=== PATIENT | female | born 1975 | race African-American/Black ===

== ENCOUNTER → 2021-11-23 | Outpatient (CLI) | payer OTHER ==
[~2021-11-23] MED LIST: LISI1TAB37 PO
--- NOTE | 2021-11-23 13:24 | EKG ---
[facility] [address] [place] [address] Test Date: 2021-11-23 Test Time: 13:18:34 Pat Name: DILLON HUGHES Department: Room: Gender: F Counter Maker: RADHA : 1975 Requested By: SILVIANO ANGUIANO Order Number: [id number] Reading MD: Layton Hammond MD Measurements Intervals Linch Rate: 76 P: 67 OH: 182 QRS: 68 QRSD: 76 T: 48 QT: 380 QTc: 432 Interpretive Statements SINUS RHYTHM Electronically Signed On 11-26-2021 8:49:05 CDT by Layton Hammond MD
[2021-11-23 13:30] LABS: BASO % 1 % (0-3); EOS # 0.3 x10^3/uL (0.0-0.7); EOS % 4 % (0-3); HEMATOCRIT 40.9 % (36.0-47.0); HEMOGLOBIN 13.9 g/dL (12.0-15.5); LYMPH # 2.9 x10^3/uL (1.0-4.8); LYMPH % 38 % (24-48); MEAN CORPUSCULAR HEMOGLOBIN 33 pg (25-35); MEAN CORPUSCULAR HGB CONC 34 g/dL (31-37); MEAN CORPUSCULAR VOLUME 96 fL (79-100); MONO # 0.6 x10^3/uL (0.0-1.1); MONO % 7 % (0-9); NEUT # 3.7 x10^3/uL (1.8-7.7); NEUT % 50 % (31-73); PLATELET COUNT 283 x10^3/uL (140-400); RED BLOOD COUNT 4.25 x10^6/uL (3.50-5.40); RED CELL DISTRIBUTION WIDTH 13.5 % (11.5-14.5); WHITE BLOOD COUNT 7.5 x10^3/uL (4.0-11.0)
[2021-11-23 13:46] LABS: BACTERIA,URINE FEW /HPF (0-FEW); RBC,URINE 0 /HPF (0-2); WBC,URINE OCC /HPF (0-4)
[2021-11-23 13:55] LABS: ALBUMIN 3.7 g/dL (3.4-5.0); ALBUMIN/GLOBULIN RATIO 0.9 (1.0-1.7); CALCIUM 8.8 mg/dL (8.5-10.1); CREATININE 0.9 mg/dL (0.6-1.0); GFR 82.3; POTASSIUM 3.5 mmol/L (3.5-5.1); TOTAL BILIRUBIN 0.2 mg/dL (0.2-1.0)
--- NOTE | 2021-11-23 15:54 | RAD ---
XR CHEST 2V INDICATION: PRE OP HYSTERECTOMY SCHEDULED 11/28/2021 . COMPARISON STUDY: None. FINDINGS: Lungs: Normal lung volume. No pulmonary mass or consolidation. The tracheobronchial tree and hilar st ructures are normal. Pleura: No pleural effusion or pneumothorax. Heart and Mediastinum: The cardiomediastinal silhouette is normal. The great vessels of the thorax ar e normal. Bones and Soft Tissues: The bones and soft tissues are within normal limits. IMPRESSION: No acute cardiopulmonary process. Electronically signed by: Robert Gregory MD (11/23/2021 3:52 PM) [id number]
== END ==
LOC: SURGPAT 12:46
PROVIDERS: ATTEND Obstetrics & Gynecology
DX: Z01.818 Encounter for other preprocedural examination (principal)
CPT/HCPCS: 36415; 71046; 80053; 81001; 85025; 93005

== ENCOUNTER → 2021-11-26 | Outpatient (CLI) | payer OTHER | LOC: LAB 12:44 | PROVIDERS: ATTEND Obstetrics & Gynecology | DX: Z01.812 Encounter for preprocedural laboratory examination (principal); Z20.822 Contact with and (suspected) exposure to COVID-19 | CPT/HCPCS: U0003 ==

== ENCOUNTER 2021-11-28 05:43 | Observation (INO) | payer OTHER ==
[2021-11-23 13:12] VITALS: BP 168/91
[2021-11-28] VITALS (10 sets, daily range): BP systolic 125–142; BP diastolic 79–90
[~2021-11-28] VITALS: Ht 154.9 cm; Wt 79.8 kg
[2021-11-28] MEDS ORDERED: HYDROmorphone 2 MG/ML INJ. IVP PRN (06:00)
[2021-11-28] MEDS ORDERED: IV RINGERS,LACTATED 1000ML 1,000 ML IV SCH (06:00)
[2021-11-28] MEDS ORDERED: MORPHINE SULFATE 2 MG/ML INJ. IVP PRN (06:00)
[2021-11-28] MEDS ORDERED: PROCHLORPERAZINE 10 MG/2 ML VIAL. IVP PRN (06:00)
[2021-11-28] MEDS ORDERED: fentaNYL PF VIAL 100 MCG/2 ML VIAL IVP PRN (06:00)
[2021-11-28] MEDS ORDERED: MIDAZOLAM HCL/PF 2 MG/2 ML VIAL. ONE (06:45)
[2021-11-28] MEDS ORDERED: PROPOFOL 10 MG/ML (20ML) VIAL. IV ONE (06:45)
[2021-11-28] MEDS ORDERED: SUCCINYLCHOLINE 200 MG/10 ML VIAL. ONE (06:45)
[2021-11-28] MEDS ORDERED: LIDOCAINE 2% PF 5 ML VIAL. ONE (06:45)
[2021-11-28] MEDS ORDERED: HYDROmorphone 2 MG/ML INJ. ONE (06:46)
[2021-11-28] MEDS ORDERED: ROCURONIUM 50 MG/5 ML VIAL. ONE (06:46)
[2021-11-28] MEDS ORDERED: BUPIVACAINE-EPI 0.25% 30 ML VIAL KIT. ONE (07:03)
[2021-11-28] MEDS ORDERED: INDIGOTINDISULFONATE SODIUM 40 MG/5 ML AMPUL. ONE (07:04)
[2021-11-28] MEDS ORDERED: ESTROGENS, CONJ VAGINAL CREAM 30GM TUBE. ONE (07:04)
[2021-11-28] MEDS ORDERED: fentaNYL PF VIAL 100 MCG/2 ML VIAL ONE ×2 (07:59→11:16)
[2021-11-28] MEDS ORDERED: KETAMINE HCL IN NACL, ISO-OSM 50 MG/5 ML SYRINGE ONE (08:14)
[2021-11-28] MEDS ORDERED: ESMOLOL 100 MG/10 ML VIAL. IVP ONE (09:24)
[2021-11-28] MEDS ORDERED: GLYCOPYRROLATE 1 MG/5 ML VIAL. ONE (09:54)
[2021-11-28] MEDS ORDERED: NEOSTIGMINE METHYLSULFATE 5 MG/5 ML SYRINGE. ONE (09:55)
[2021-11-28] MEDS ORDERED: LACTULOSE 20 GM/30 ML SOLUTION. PO PRN (10:45)
[2021-11-28] MEDS ORDERED: 0.9 % SODIUM CHLORIDE 10 ML DISP.SYRIN. IV PRN (10:45)
[2021-11-28] MEDS ORDERED: NALOXONE 0.4 MG/ML VIAL. IV PRN (10:45)
[2021-11-28] MEDS ORDERED: ONDANSETRON PF 4 MG/2 ML VIAL. IV PRN (10:45)
[2021-11-28] MEDS ORDERED: diphenhydrAMINE 50 MG/ML VIAL IV PRN (10:45)
[2021-11-28] MEDS ORDERED: ZOLPIDEM 5 MG TABLET. PO PRN (10:45)
[2021-11-28] MEDS ORDERED: MAGNESIUM HYDROXIDE 2,400 MG/30 ML ORAL.SUSP. PO PRN (10:45)
[2021-11-28] MEDS ORDERED: HYDROcodone/APAP 5/325MG 1 TAB TABLET PO PRN (10:45)
[2021-11-28] MEDS ORDERED: MORPHINE SULFATE 2 MG/ML INJ. IV PRN (10:45)
[2021-11-28] MEDS ORDERED: CALCIUM CARBONATE 500 MG TAB.CHEW PO PRN (10:45)
[2021-11-28] MEDS ORDERED: diphenhydrAMINE HCL 25 MG CAPSULE PO PRN (10:45)
[2021-11-28] MEDS ORDERED: MAG HYDROX/ALUMINUM HYD/SIMETH 30 ML ORAL.SUSP PO PRN (10:45)
--- NOTE | 2021-11-28 10:54 | PDOC4 ---
BRIEF OPERATIVE NOTE Date: November 28, 2021 Pre-Op Diagnosis enlarged fibroid uterus, menorrhagia Post-Op Diagnosis same Procedure Performed LAVH/bilateral salpingectomy/morcellationo of enlarged fibroid uterus Surgeon Dr. Madison Jara Parts Lister SINGH Ferreira Anesthesiologist Dr. Camarillo Anesthesia Type: General Blood Loss 600cc IV Fluid 2L Urine Output 75cc clear and concentrated in kulkarni Specimens Obtained cervix, uterus in pieces and bilateral distal tubes (prior tubal ligation) Findings very enlarged fibroid uterus, evidence of prior tubal and normal bilateral ovaries, no significant adhesive disease Complications none Operative Note [id number] MADISON JARA MD November 28, 2021 10:54
[2021-11-28] MEDS: fentaNYL PF VIAL 100 MCG/2 ML VIAL IVP PRN ×2 (11:20→11:25)
[2021-11-28 11:38] LABS: HEMATOCRIT 35.8 % (36.0-47.0); HEMOGLOBIN 11.8 g/dL (12.0-15.5); RED BLOOD COUNT 3.71 x10^6/uL (3.50-5.40); RED CELL DISTRIBUTION WIDTH 13.2 % (11.5-14.5); WHITE BLOOD COUNT 15.9 x10^3/uL (4.0-11.0)
--- NOTE | 2021-11-28 12:25 | OP ---
DATE OF SURGERY: 11/28/2021 PREOPERATIVE DIAGNOSIS: Enlarged fibroid uterus and menorrhagia. POSTOPERATIVE DIAGNOSIS: Enlarged fibroid uterus and menorrhagia. PROCEDURE: Laparoscopic-assisted vaginal hysterectomy, bilateral salpingectomy and morcellation of enlarged fibroid uterus to get it out vaginally. SURGEON: Madison Jara MD. ASSOCIATE SALES REPRESENTATIVE: SINGH Anna ANESTHESIOLOGIST: Dr. Camarillo. ANESTHESIA: General. BLOOD LOSS: 600 mL. URINE OUTPUT: 75 mL clear and concentrated via Garcia catheter. FLUIDS: 2 liters of crystalloid. SPECIMENS: Cervix, uterus in pieces and bilateral distal tubes with evidence of prior tubal ligation. COMPLICATIONS: None. FINDINGS: She had a very enlarged fibroid uterus two-thirds the way up to the umbilicus. No significant pelvic adhesive disease. Normal bilateral ovaries, normal bilateral distal tubes with evidence of prior tubal ligation. DESCRIPTION OF PROCEDURE: This patient was taken to the operating room where general anesthesia was placed. The patient was placed in dorsal lithotomy position in Josh stirrups. The patient's abdomen and vagina were both prepped and draped in the normal sterile fashion and a Garcia catheter had been inserted under sterile technique. Upon my arrival, a timeout was performed. Once everyone agreed on the patient, the site, the procedure, the antibiotics, the procedure was initiated. Initially, a bivalve speculum was placed in the patient's vagina. A single-tooth tenaculum was used to grasp the anterior lip of the cervix. 10 mL of 0.25% local with epinephrine was used to circumferentially inject around the cervix for both hemodissection and hemostatic purposes later. The Valtchev uterine manipulator was placed through the endocervical os, locked on the single tooth tenaculum and the bivalve speculum was then removed. Top gloves were discarded and changed. Attention was then turned to the abdomen where a supraumbilical skin incision was made. This was 2-3 cm above the umbilicus to give adequate room to get around the uterus to see if we could get the blood supply, it was injected first making a small incision with the scalpel using a curved Taina to dissect through the subcuticular layer to the fascia. The 5 mm Visiport was used to directly enter the abdominal cavity. Opening patient pressure was 4-5 mmHg. Carbon dioxide gas was used to then appropriately insufflate the abdominal cavity to maintain a pressure of 15 mmHg. This was actually turned up to 16, 17 as her opening pressure was already 5-6 to lift that abdominal wall. Once we were in and direct placement was confirmed via the laparoscope, overhead lights were dimmed. The patient was placed in Trendelenburg position. Right and left lower quadrant ports were made. There were no adhesions on the inside after transilluminating the abdominal wall, finding an area clear of any vasculature injecting with 0.25% with making a small incision and placing the 5 mm atraumatic trocars and under direct visualization. A 4 to 5 mL of air was placed in the trocar cuff. Then, the camera was moved laterally to check the supraumbilical port. It was also clear and it was insufflated with the 4 mL of air as well. Camera was moved back to the midline. Both tubes and ovaries were seen. Ureter was clearly seen on the right side, left side it appeared to be right near the vessel, but it was harder to see on this side as it was more narrow on this side and it was also a little bit bloodier on that side like hyperemic, but yes we could lift the tube and ovary. We went just took the distal tubes because the proximal tubes had been taking were already gone. Both tubes were pulled out laparoscopically easy and then we got the round ligaments on both sides, cauterizing and cutting with the LigaSure opening that up, pushing the uterus up and making the bladder flap sharply with the monopolar hook. Once this was done, the uteroovarian pedicles were crossed on both sides, again with the LigaSure, hugging the uterus, staying right on the uterus as these ovaries were right near it and letting them fall out laterally, leaving both ovaries that looked normal. Taking the tubes and leaving both ovaries per patient request so, crossing the utero-ovarian pedicles on both sides. At this point, once the bladder was down, I was able to cross contralaterally and get the uterines on the left side and then get them on the right side as well and then hugging on the right side, staying posterior while pushing the uterus cephalad, staying right on that posterior cervix that we could see clearly and going through the cardinal and broad ligaments to the level of the uterosacral. We got very low on the right side and got the uterines on the left side, but did not go quite as low because that was the narrow side and I did not want to go outside. I stayed inside my pedicles, so I would make sure I did not risk anything on the pelvic wall. So once that bladder was down and we got the uterines on the left side, right side uterines and through the cardinal and broad low, it was decided with no adhesions. Even though it was a large uterus the blood supply was obtained. The tubes were out. The uteroovarian pedicles were done. Rounds were cut. It was decided to go below. So, all instruments were removed from the abdomen and attention was turned vaginally. The single tooth and Valtchev were removed. A weighted speculum was placed in the patient's vagina. Thyroid Sima clamps were placed on the anterior and posterior lips of the cervix respectively. A scalpel was used to make a circumferential incision in the cervix. The posterior cul-de-sac was bulging and it was easily seen and sharply entered. A #0 Vicryl stitch was used to secure the posterior peritoneum here to the vaginal cuff, it was tagged with a curved Taina clamp. The needle was cut and passed off. The short weighted vaginal speculum was removed and it was replaced with the long weighted Stanley speculum in the posterior cul-de-sac. At this point, care was taken to be directed at the bladder flap. The end of the plastic Yankauer suction tip was used to gently push up while pulling back on the cervix and taking the bladder up sharply and bluntly and then using an open Ray-Kennedy 4 x 4 to gently push it off the cervix. Once it was up and out of the way, I was able to get in on one of the sides and took it around. Curved Gustavo clamps x 2 were placed on the patient's left uterosacral ligament where they were doubly clamped with curved Heaneys, cut with curved Berger scissors and suture ligated x 2. Second one was taken through the vaginal cuff, securing uterosacral ligament to the vaginal cuff, tagging it with a straight Taina clamp and cutting and passing the needle off. This was done exactly the same on the patient's right side, double clamping the uterosacrals with curved Gustavo's, cutting with curved Berger scissors and suture ligating x 2 with 0 Vicryl, taking the second one through the vaginal cuff, securing uterosacral ligament to the vaginal cuff, tagging it with a straight Taina clamp and cutting and passing the needle off. At this point, the vaginal LigaSure was used to take a bite on the left side as we were not quite as high cauterizing and cutting, getting higher. The right side was lower. I was able to get the curved right angle clamp around the remaining pedicle delineating it and taking the vaginal LigaSure and cauterizing and cutting it. The entire right side was free, taking it around and getting the remaining pedicle on the left side. Once it was free and I could get my finger all the way around and it was starting to pull out vaginally, but there was still a large uterus above. The single tooth and double tooth tenaculums were placed on the posterior cervix and then a scalpel was used to start morcellating the uterus. The cervix was taken off and large chunks were cored out of the middle of the uterus and then pulling it down the sides where we could visually see opening it up and going through the middle under direct visualization pulling out large pieces until it decompressed and the remainder pulled out. Greater than 15 cm of chunks were taken out under direct visualization. Once that was done, clots and debris were cleared out from the cul-de-sac. A sponge stick was used to examine the pedicles. The pedicles appeared to be hemostatic. The long Stanley speculum was removed and replaced with the short weighted vaginal speculum and I was able to grasp the anterior bladder peritoneum with a long Allis, 2-0 Vicryl was taken through the anterior bladder peritoneum, left uterosacral ligament, posterior peritoneum and right uterosacral ligament, thus closing the peritoneum in a pursestring like fashion. Once this was done, both the right and left uterosacral tags were clipped. The cuff was closed in an anterior to posterior running locked fashion and tied to the posterior cuff tag. An imbricating stitch was placed for hemostasis and just making sure it was secure. A sponge stick was used to examine the vaginal cuff and it was completely hemostatic, so at this point, all gloves were discarded and changed. All counts had been correct x 2 by OR personnel below and look was taken from above. The patient was placed back in Trendelenburg, overhead lights were redimmed. Copious irrigation revealed hemostasis. Clots and debris were taken out before irrigating. Right and left pericolic gutters were clear. All the clots were suctioned out easily. The irrigation was returning clear. Tisseel was placed over the cuff. Both ovaries were normal. So at this point, the 4-5 mL of air was taken out of all three trocar cuffs. It remained hemostatic. The right and left lower quadrant ports were removed under direct visualization. Gas was released from that supraumbilical port. Once the gas was out it was also removed. All 3 port sites were closed with 4-0 nylon at the skin. The catheter was removed . The patient was awakened from anesthesia and has been brought to recovery room in stable condition. CECILY/KANA DR: Jimbo TID: [id number]
[2021-11-28] MEDS: oxyCODONE/APAP 5/325 1 TAB TABLET PO PRN ×2 (15:48→19:36)
--- NOTE | 2021-11-28 16:03 | NUR ---
1210 Patient arrived room 341 at this time via bed accompanied by RN's x2. Patient slept during transfer from PACU. 1220 Assessment completed, patient wakes up when name called. Patient asks about type of incision done in OR. Patient denies pain and back to sleep. LS clear BS hypo active. IV site to right hand C/D/I with no redness, infusing LR @125 ml Hr. Lap sites x3 D/I with slight shadowing to right incision. Son at bedside. 1400 Patient continues to sleep, awakes when name called. Denies needs at this time, Son remains at bedside. Up to BR voided 100 yellow urine. 1500 RN called to room, Incision to right lateral bleeding. Drsg saturated. Pressure applied, dressing applied and secured with tape. Patient states Lying on right side when bleeding started. Gown and underpad changed. 1548 Percocet 2 tabs given for c/o pain rating 7. Family member at bedside.
[2021-11-29] MEDS: oxyCODONE/APAP 5/325 1 TAB TABLET PO PRN ×2 (03:10→07:57)
[2021-11-29] MEDS: SIMETHICONE 80 MG TAB.CHEW PO PRN ×2 (03:21→07:56)
[2021-11-29 03:30] VITALS: BP 154/86
[2021-11-29 06:36] VITALS: BP 143/81
[2021-11-29 07:40] LABS: HEMATOCRIT 30.3 % (36.0-47.0); RED BLOOD COUNT 3.13 x10^6/uL (3.50-5.40); RED CELL DISTRIBUTION WIDTH 13.6 % (11.5-14.5); WHITE BLOOD COUNT 12.1 x10^3/uL (4.0-11.0)
[2021-11-29 07:45] VITALS: BP 137/86
[2021-11-29 07:57] LABS: CALCIUM 8.1 mg/dL (8.5-10.1); CREATININE 0.8 mg/dL (0.6-1.0); GFR 94.3; POTASSIUM 4.3 mmol/L (3.5-5.1)
--- NOTE | 2021-11-29 08:31 | PDOC ---
SURGICAL PROGRESS NOTE DATE: 11/29/21 TIME: 08:17 Subjective Doing well without complaints. Just slow to move and sore. Scant VB, no more bleeding from the right port site. Tolerating regular diet without n/v and voiding well without catheter. Vital Signs Vital Signs Date Time Temp Pulse Resp B/P (MAP) Pulse Ox O2 Delivery O2 Flow Rate FiO2 11/29/21 07:57 20 11/29/21 07:45 98.2 80 137/86 (103) 98.2 11/29/21 06:36 97 Room Air 11/28/21 11:30 6.0 I&O Intake and Output 11/29/21 06:59 Intake Total 3504 ml Output Total 2450 ml Balance 1054 ml Intake Oral 454 ml IV Total 3050 ml Output Urine Total 1850 ml Estimated Blood Loss 600 ml # Voids 3 PATIENT HAS A MENENDEZ: No General: Alert, Oriented X3, Cooperative, No acute distress HEENT: Atraumatic Heart: Regular rate Abdomen: Soft, No tenderness, Other (all port sites c/d/i) Extremities: No clubbing, No cyanosis, No edema Skin: No rashes, No breakdown, No significant lesion Neuro: Normal speech Psych/Mental Status: Mental status NL, Mood NL Labs Laboratory Tests Test 11/28/21 06:05 11/28/21 06:07 11/28/21 11:26 11/29/21 07:20 POC SARS CoV-2 Antigen Negative (NEGATIVE) Bedside Urine HCG, Qualitative Hcg negative (Negative) White Blood Count 15.9 x10^3/uL (4.0-11.0) 12.1 x10^3/uL (4.0-11.0) Red Blood Count 3.71 x10^6/uL (3.50-5.40) 3.13 x10^6/uL (3.50-5.40) Hemoglobin 11.8 g/dL (12.0-15.5) 10.0 g/dL (12.0-15.5) Hematocrit 35.8 % (36.0-47.0) 30.3 % (36.0-47.0) Mean Corpuscular Volume 96 fL (79-100) 97 fL (79-100) Mean Corpuscular Hemoglobin 32 pg (25-35) 32 pg (25-35) Mean Corpuscular Hemoglobin Concent 33 g/dL (31-37) 33 g/dL (31-37) Red Cell Distribution Width 13.2 % (11.5-14.5) 13.6 % (11.5-14.5) Platelet Count 288 x10^3/uL (140-400) 265 x10^3/uL (140-400) Sodium Level 141 mmol/L (136-145) Potassium Level 4.3 mmol/L (3.5-5.1) Chloride Level 108 mmol/L (98-107) Carbon Dioxide Level 25 mmol/L (21-32) Anion Gap 8 (6-14) Blood Urea Nitrogen 8 mg/dL (7-20) Creatinine 0.8 mg/dL (0.6-1.0) Estimated GFR (Cockcroft-Gault) 94.3 Glucose Level 109 mg/dL (70-99) Calcium Level 8.1 mg/dL (8.5-10.1) Laboratory Tests Test 11/28/21 11:26 11/29/21 07:20 White Blood Count 15.9 x10^3/uL (4.0-11.0) 12.1 x10^3/uL (4.0-11.0) Red Blood Count 3.71 x10^6/uL (3.50-5.40) 3.13 x10^6/uL (3.50-5.40) Hemoglobin 11.8 g/dL (12.0-15.5) 10.0 g/dL (12.0-15.5) Hematocrit 35.8 % (36.0-47.0) 30.3 % (36.0-47.0) Mean Corpuscular Volume 96 fL (79-100) 97 fL (79-100) Mean Corpuscular Hemoglobin 32 pg (25-35) 32 pg (25-35) Mean Corpuscular Hemoglobin Concent 33 g/dL (31-37) 33 g/dL (31-37) Red Cell Distribution Width 13.2 % (11.5-14.5) 13.6 % (11.5-14.5) Platelet Count 288 x10^3/uL (140-400) 265 x10^3/uL (140-400) Sodium Level 141 mmol/L (136-145) Potassium Level 4.3 mmol/L (3.5-5.1) Chloride Level 108 mmol/L (98-107) Carbon Dioxide Level 25 mmol/L (21-32) Anion Gap 8 (6-14) Blood Urea Nitrogen 8 mg/dL (7-20) Creatinine 0.8 mg/dL (0.6-1.0) Estimated GFR (Cockcroft-Gault) 94.3 Glucose Level 109 mg/dL (70-99) Calcium Level 8.1 mg/dL (8.5-10.1) I have reviewed the following labs, vitals, nursing Cardiovascular: No pertinent hx Pulmonary: No pertinent hx GI: No pertinent hx Heme/Onc: Anemia NOS Psych: No pertinent hx Rheumatologic: No pertinent hx Assessment/Plan POD #1 s/p LAVH/bilateral salpingectomy Routine PO care d/c to home later today NPV x 6 weeks Light/limited activity x 2 weeks keep scheduled appt in one week with me in office NO driving x 1 week and while on narcotic pain meds already has narcotic pain meds filled at home ok for OTC ibuprofen as needed call or return sooner for any other questions or concerns not limited to but including pain unrelieved with pain meds, increased or unexplained vb or T>100.4 Justicifation of Admission Dx: Justifications for Admission: Justification of Admission Dx: Yes SILVIANO ANGUIANO MD November 29, 2021 08:31
--- NOTE | 2021-11-29 08:34 | PDOC3 ---
Discharge Summary Visit Information Date of Admission: November 28, 2021 Date of Discharge: November 29, 2021 Final Diagnosis enlarged fibroid uterus Brief Hospital Course Allergies Allergies Coded Allergies Type Severity Reaction Last Updated Verified No Known Drug Allergies 11/28/21 No Vital Signs Vital Signs Date Time Temp Pulse Resp B/P (MAP) Pulse Ox O2 Delivery O2 Flow Rate FiO2 11/29/21 07:57 20 11/29/21 07:45 98.2 80 137/86 (103) 98.2 11/29/21 06:36 97 Room Air 11/28/21 11:30 6.0 Lab Results Laboratory Tests Test 11/28/21 06:05 11/28/21 06:07 11/28/21 11:26 11/29/21 07:20 POC SARS CoV-2 Antigen Negative (NEGATIVE) Bedside Urine HCG, Qualitative Hcg negative (Negative) White Blood Count 15.9 x10^3/uL (4.0-11.0) 12.1 x10^3/uL (4.0-11.0) Red Blood Count 3.71 x10^6/uL (3.50-5.40) 3.13 x10^6/uL (3.50-5.40) Hemoglobin 11.8 g/dL (12.0-15.5) 10.0 g/dL (12.0-15.5) Hematocrit 35.8 % (36.0-47.0) 30.3 % (36.0-47.0) Mean Corpuscular Volume 96 fL (79-100) 97 fL (79-100) Mean Corpuscular Hemoglobin 32 pg (25-35) 32 pg (25-35) Mean Corpuscular Hemoglobin Concent 33 g/dL (31-37) 33 g/dL (31-37) Red Cell Distribution Width 13.2 % (11.5-14.5) 13.6 % (11.5-14.5) Platelet Count 288 x10^3/uL (140-400) 265 x10^3/uL (140-400) Sodium Level 141 mmol/L (136-145) Potassium Level 4.3 mmol/L (3.5-5.1) Chloride Level 108 mmol/L (98-107) Carbon Dioxide Level 25 mmol/L (21-32) Anion Gap 8 (6-14) Blood Urea Nitrogen 8 mg/dL (7-20) Creatinine 0.8 mg/dL (0.6-1.0) Estimated GFR (Cockcroft-Gault) 94.3 Glucose Level 109 mg/dL (70-99) Calcium Level 8.1 mg/dL (8.5-10.1) Laboratory Tests Test 11/28/21 11:26 11/29/21 07:20 White Blood Count 15.9 x10^3/uL (4.0-11.0) 12.1 x10^3/uL (4.0-11.0) Red Blood Count 3.71 x10^6/uL (3.50-5.40) 3.13 x10^6/uL (3.50-5.40) Hemoglobin 11.8 g/dL (12.0-15.5) 10.0 g/dL (12.0-15.5) Hematocrit 35.8 % (36.0-47.0) 30.3 % (36.0-47.0) Mean Corpuscular Volume 96 fL (79-100) 97 fL (79-100) Mean Corpuscular Hemoglobin 32 pg (25-35) 32 pg (25-35) Mean Corpuscular Hemoglobin Concent 33 g/dL (31-37) 33 g/dL (31-37) Red Cell Distribution Width 13.2 % (11.5-14.5) 13.6 % (11.5-14.5) Platelet Count 288 x10^3/uL (140-400) 265 x10^3/uL (140-400) Sodium Level 141 mmol/L (136-145) Potassium Level 4.3 mmol/L (3.5-5.1) Chloride Level 108 mmol/L (98-107) Carbon Dioxide Level 25 mmol/L (21-32) Anion Gap 8 (6-14) Blood Urea Nitrogen 8 mg/dL (7-20) Creatinine 0.8 mg/dL (0.6-1.0) Estimated GFR (Cockcroft-Gault) 94.3 Glucose Level 109 mg/dL (70-99) Calcium Level 8.1 mg/dL (8.5-10.1) Brief Hospital Course Ms. Gomez is a 46 old female who presented with menorrhagia and enlarged fibroid uterus. She underwent LAVH/bilateral salpingectomy without complications yesterday. She has had an unremarkable postoeprative course. She had some slight oozing from RLQ port that looks dry today. She is tolerating regular diet without n/v, ambulating ok, voiding without [id number] and scant VB. Assessment Assessment POD #1 s/p LAVH/bilateral salpingectomy Routine PO care d/c to home later today NPV x 6 weeks Light/limited activity x 2 weeks keep scheduled appt in one week with me in office NO driving x 1 week and while on narcotic pain meds already has narcotic pain meds filled at home ok for OTC ibuprofen as needed call or return sooner for any other questions or concerns not limited to but including pain unrelieved with pain meds, increased or unexplained vb or T>100.4 Discharge Information Condition at Discharge: Stable Follow Up: Weeks Disposition/Orders: D/C to Home Scheduled Lisinopril/Hydrochlorothiazide (Lisinopril-Hctz 20-12.5 Mg Tab) 1 Each Tablet, 1 TAB PO DAILY for htn, #30 Ref 5 (Reported) Entered as Reported by: Diamond Rivera on 11/23/21 1302 Last Taken: Unknown Dose on 11/26/21 Last Action: Last Taken Edited on 11/28/21 0619 by DA RICE Patient Instructions Patient Instructions POD #1 s/p LAVH/bilateral salpingectomy Routine PO care d/c to home later today NPV x 6 weeks Light/limited activity x 2 weeks keep scheduled appt in one week with me in office NO driving x 1 week and while on narcotic pain meds already has narcotic pain meds filled at home ok for OTC ibuprofen as needed call or return sooner for any other questions or concerns not limited to but including pain unrelieved with pain meds, increased or unexplained vb or T>100.4 Justicifation of Admission Dx: Justifications for Admission: Justification of Admission Dx: Yes SILVIANO ANGUIANO MD November 29, 2021 08:34
--- NOTE | 2021-11-29 09:30 | NUR ---
Dismissal instructions given and signed. Pt verbalized understanding
[2021-11-29 09:45] VITALS: BP 132/81
--- NOTE | 2021-11-29 10:15 | NUR ---
Out per w/c vss to awaiting vehicle.
--- NOTE | 2021-11-29 19:08 | PATHOLOGY ---
[facility] Accession Number: [id number] . 01 Material submitted: . uterus - UTERUS, CERVIX, BILATERAL SALPINGECTOMY . 01 Clinical history: . MENORRHAGIA, FIBROIDS, ENLARGED UTERUS . 02 Diagnosis: Segments of uterine corpus, and detached uterine cervix and segments of fallopian tube, hysterectomy with bilateral salpingectomy: - Leiomyomas, uterine corpus, submucosal/intramural/subserosal, multiple, the largest measuring up to 5.0 cm in greatest dimension (Uterine weight 494 grams) - Adenomyosis, uterine corpus, focal. - Low grade chronic endometritis with focal glandular/stromal breakdown. - Segments (2) of fallopian tube showing no diagnostic abnormalities. (JPM:nely; 11/29/2021) [facility] 11/29/2021 1807 Local . 02 Comment: There is no atypia or evidence of malignancy. (JPM:nely; 11/29/2021) . 02 Electronically signed: . Nate Lindsey MD, Pathologist NPI- [id number] . 01 Gross description: . Fixative: Formalin Labeled: Uterus, cervix bilateral salpingectomy Specimen received: A previously morcellated uterus with detached cervix and at least 2 segments of fallopian tubes. The ovaries are not received. Uterus weight: 494 g Uterus: 19.3 x 15.4 x 5.5 cm in aggregate Serosa: [place]-av[place], smooth, glistening and focally hemorrhagic Cervix: 3.4 x 2.5 cm, centrally shaggy and disrupted Cervical os: Central, slitlike and patent, measuring 1.5 cm in diameter . Endocervical canal: 6.0 cm in length x 0.3 cm-1.1 cm in diameter Endometrial cavity: Approximately 6.4 x 3.5 cm Endometrium: avina-pink and smooth Endometrial thickness: 0.1 cm Myometrium: [place]-pink and trabecular Myometrium thickness: at least 4.9 cm Lesions/abnormalities: The myometrium displays numerous avina-white, well-circumscribed, submucosal, intramural and subserosal nodules (ranging from 0.6 cm to 5.0 cm in greatest dimension). Sectioning through the nodules reveals avina-white and whorled cut surfaces with areas of cystic degeneration and necrosis and without calcifications or hemorrhage. . Fallopian tube segments: Each are previously disrupted, measuring 1.8 cm in length by 0.5 cm diameter and 2.3 cm in length by 0.6 cm in diameter. Fimbria is not identified. . Health Care Analyst sections are submitted as follows: A1-A2: Cervix A3: Endomyometrial shavings A4-A7: Myometrial nodules A8: Serosal shavings A9: Fallopian tubes (TOHONO O'ODHAM; 11/28/2021) DKA/DKA 11/29/2021 1430 Local . 02 Pathologist provided ICD-10: D25.2, D25.1, D25.0, N80.0, N71.1, N85.9, N92.0 . 02 CPT . 419040 Specimen Comment: A courtesy copy of this report has been sent to [phone] Specimen Comment: Report sent to Specimen Comment: A duplicate report has been generated due to demographic updates. Performed at: 01 [facility] [address] [facility] [address], [place] [id number] MD Srinivasan Corona MD Phone: [phone] Performed at: 02 [facility] [address] [place], [place] [id number] MD Nate Lindsey MD Phone: [phone]
== END 2021-11-29 10:15 | disposition home or self-care (01) ==
LOC: SURG 05:43 → EDUNIT# 07:30 → 3 SO LND 10:39
PROVIDERS: ADMIT Obstetrics & Gynecology; ATTEND Obstetrics & Gynecology
DX: N92.0 Excessive and frequent menstruation with regular cycle (principal); Z20.822 Contact with and (suspected) exposure to COVID-19; N85.2 Hypertrophy of uterus; D25.9 Leiomyoma of uterus, unspecified; D64.9 Anemia, unspecified; Z98.51 Tubal ligation status
CPT/HCPCS: 36415; 58554; 80048; 81025; 85027; 86850; 86900; 86901; A4314; A4930; G0378; G0379; J0330; J0690; J1170; J2250; J2704; J2710; J3010; J3480; J3490; A4657